=== PATIENT | male | born 1980 | race Caucasian/White ===

== ENCOUNTER 2018-05-19 02:05 | Emergency (ER) | payer OTHER ==
[~2018-05-19] VITALS: Ht 172.7 cm; Wt 68.0 kg
[2018-05-19] MEDS ORDERED: VALIUM2 MG ORAL (02:11)
[2018-05-19] MEDS ORDERED: XANAX0.25 MG ORAL (02:11)
[2018-05-19 02:12] VITALS: BP 119/73
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
[2018-05-19] MEDS: Haloperidol 5mg/ml Inj IM ONE (02:43)
[2018-05-19 05:41] VITALS: BP 117/71
== END 2018-05-19 05:32 | disposition home or self-care (01) ==
LOC: EDBD 02:05 → EMR 02:21
DX: R45.1 Restlessness and agitation (principal); F10.129 Alcohol abuse with intoxication, unspecified; F19.90 Other psychoactive substance use, unspecified, uncomplicated; Z72.0 Tobacco use
CPT/HCPCS: 96372; 99283; J1630